=== PATIENT | female | born 1960 | race Hispanic/Latino ===

== ENCOUNTER 2018-05-08 12:57 | Outpatient (CLI) | payer OTHER | END 2018-05-08 12:58 | disposition home or self-care (01) | LOC: C.CTH 12:57 ==

== ENCOUNTER 2018-06-14 12:47 | Outpatient (CLI) | payer OTHER | END 2018-06-14 12:48 | disposition home or self-care (01) | LOC: C.LAB 12:47 | DX: E11.65 Type 2 diabetes mellitus with hyperglycemia (principal); I10 Essential (primary) hypertension; E04.2 Nontoxic multinodular goiter; E78.2 Mixed hyperlipidemia; E01.8 Other iodine-deficiency related thyroid disorders and allied conditions; E06.3 Autoimmune thyroiditis ==

== ENCOUNTER 2018-06-14 12:53 | Outpatient (CLI) | payer OTHER | END 2018-06-14 12:54 | disposition home or self-care (01) | LOC: C.USIC 12:54 | DX: R42 Dizziness and giddiness (principal) ==